=== PATIENT | male | born 1995 ===

== ENCOUNTER 2017-11-21 17:46 | Emergency (ER) | payer SELFPAY ==
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
[2017-11-21] MEDS ORDERED: TDAP Vaccine 0.5 mL Syr IM ONE (20:12)
[2017-11-21 23:13] VITALS: BP 127/79; PULSE 82; RESP 18; TEMP 99.4; O2SAT 99
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
== END 2017-11-21 23:17 | disposition home or self-care (01) ==
LOC: ED 17:46
DX: S00.81XA Abrasion of other part of head, initial encounter (principal); Y08.89XA Assault by other specified means, initial encounter; Y92.522 Railway station as the place of occurrence of the external cause; Z23 Encounter for immunization
CPT/HCPCS: 70480; 73551; 73562; 90471; 90715; 96372; 99283; J1885